=== PATIENT | female | born 1980 | race Caucasian/White ===

== ENCOUNTER 2022-12-02 15:01 | Outpatient (CLI) | payer BC ==
[~2022-12-02 15:01] MED LIST: Iopamidol 300 61% 100 ML VIAL FS ONE
== END 2022-12-02 15:02 | disposition home or self-care (01) ==
LOC: CSHCT 15:01
PROVIDERS: ATTEND Family Medicine
DX: R31.29 Other microscopic hematuria (principal); K76.9 Liver disease, unspecified; N94.89 Other specified conditions associated with female genital organs and menstrual cycle
CPT/HCPCS: 74178

== ENCOUNTER 2022-12-15 14:06 | Outpatient (CLI) | payer BC | END 2022-12-15 14:07 | disposition home or self-care (01) | LOC: CSHMAMMO 14:06 | PROVIDERS: ATTEND Family Medicine | DX: Z12.31 Encounter for screening mammogram for malignant neoplasm of breast (principal); Z98.890 Other specified postprocedural states; Z80.3 Family history of malignant neoplasm of breast | CPT/HCPCS: 77063; 77067 ==